=== PATIENT | female | born 1975 | race Two or more races ===

== ENCOUNTER → 2022-08-13 14:02 | Outpatient (BNVA) | payer MEDICAID, SELFPAY | PROVIDERS: Visit Provider Physician Assistant Surgical | DX: Z13.89 Encounter for screening for other disorder (principal) ==

== ENCOUNTER → 2022-08-21 11:26 | Outpatient (BNVA) | payer MEDICAID, SELFPAY | PROVIDERS: Visit Provider Physician Assistant Surgical | DX: E66.9 Obesity, unspecified (principal); Z68.38 Body mass index [BMI] 38.0-38.9, adult; R06.83 Snoring | CPT/HCPCS: 99202 ==

== ENCOUNTER 2022-08-28 11:27 | Outpatient (REF) | payer MEDICAID, SELFPAY ==
--- NOTE | ~2022-08-28 | XR_ITS ---
EXAMINATION: XR CHEST CLINICAL INFORMATION: Obesity. COMPARISON: None TECHNIQUE: 2 views of the chest were obtained. FINDINGS: Normal appearance of the cardiomediastinal silhouette. No focal airspace opacity, pleural effusion or pneumothorax. No acute osseous abnormalities. Mild thoracic spondylosis. The visualized upper abdomen is within normal limits. XR/XR chest 2V IMPRESSION: No acute cardiopulmonary findings.
--- NOTE | 2022-08-28 11:34 | ECG_ITS ---
Test Reason : e66.9 Blood Pressure : / mmHG Vent. Rate : 084 BPM Atrial Rate : 084 BPM P-R Int : 198 ms QRS Dur : 070 ms QT Int : 352 ms P-R-T Axes : 049 031 033 degrees QTc Int : 415 ms Normal sinus rhythm Possible Left atrial enlargement Borderline ECG No previous ECGs available Referred By: Scot Aguilar Electronically Signed By:LUCY NEAL
[2022-08-28 11:44] LABS: MANUAL DIFF FLAG NO
[2022-08-28 12:51] LABS: Basophils Percent Auto 0.2 % (0-2); Eosinophils Absolute Auto 0.2 X10*3/uL (0.0-0.4); Eosinophils Percent Auto 1.9 % (0-4); Hemoglobin 13.9 g/dl (12.0-16.0); Imm Gran Abs Auto 0.04 X10*3/uL (0.00-0.03); Imm Gran Pct Auto 0.5 % (0.0-0.4); Lymphocytes Absolute Auto 1.9 X10*3/uL (1.2-4.9); Lymphocytes Percent Auto 22.3 % (20-40); Mean Corpuscular HGB Conc 33.1 g/dl (31.0-35.0); Mean Corpuscular Hemoglobin 28.4 pg (27.0-33.0); Mean Corpuscular Volume 85.9 fL (80.0-98.0); Mean Platelet Volume 10.5 fL (9.4-12.3); Monocytes Absolute Auto 0.5 X10*3/uL (0.1-1.2); Monocytes Percent Auto 6.1 % (2-11); Neutrophils Absolute Auto 5.7 x10*3/uL (2.0-8.3); Platelet Count 361 X10*3/uL (160-400); Red Blood Count 4.89 X10*6/uL (4.20-5.50); Red Cell Distribution Width 14.3 % (11.0-16.0); White Blood Count 8.3 X10*3/uL (4.8-10.8)
[2022-08-28 14:04] LABS: Alanine Aminotransferase 27 U/L (0-31); Albumin Level 4.5 g/dL (3.5-5.0); Alkaline Phosphatase 120 U/L (39-117); Anion Gap 17 (12-20); Aspartate Amino Transferase 24 U/L (5-31); Bilirubin Total 0.7 mg/dL (0.0-1.0); Blood Urea Nitrogen 17 mg/dL (9-16); Calcium 10.2 mg/dL (8.4-10.2); Carbon Dioxide 29 mmol/L (22-29); Chloride 98 mmol/L (96-108); Cholesterol 200 mg/dL; Estimated Glomerular Filt Rate > 60; Glucose Random 86 mg/dL (60-115); HDL Cholesterol 58 mg/dL; Iron 65 mcg/dL (30-160); LDL Cholesterol Calculated 126 mg/dl; Percent Iron Saturation 21 % (15-50); Potassium 3.5 mmol/L (3.3-5.1); Sodium 140 mmol/L (135-145); Total Iron Binding Capacity 310 mcg/dL (228-428); Total Protein 7.5 g/dL (6.5-8.0); Triglycerides 84 mg/dL; Unsaturated Iron Binding 245 ug/dL
[2022-08-28 14:18] LABS: Estimated Average Glucose 103 mg/dL; Hemoglobin A1C 122.2005 umol/L; Hemoglobin A1c % 5.2 %
[2022-08-28 14:24] LABS: Ferritin 147 ng/mL (10-250); Insulin 10 uU/mL (2-29); TSH reflex Free T4 0.38 uIU/mL (0.32-4.0); Vitamin D 25-OH Total 18.5 ng/mL (>30)
[2022-08-28 15:05] LABS: Vitamin B12 589 pg/mL (200-900)
[2022-08-31 13:23] LABS: Calcium (PTHI) 10.1 mg/dL (8.6-10.2); PTHI 63 pg/mL (16-77)
[2022-09-01 05:53] LABS: Zinc 70 mcg/dL (60-130)
[2022-09-02 14:33] LABS: Vitamin A 37 mcg/dL (38-98)
[2022-09-03 15:58] LABS: Vitamin B1 12 nmol/L (8-30)
== END 2022-08-28 11:28 | disposition home or self-care (01) ==
LOC: HO.XRAY 11:27
PROVIDERS: Visit Provider Physician Assistant Surgical
DX: E66.9 Obesity, unspecified (principal); R06.83 Snoring
CPT/HCPCS: 36415; 71046; 80053; 80061; 82306; 82607; 82728; 82746; 83036; 83525; 83540; 83970; 84425; 84443; 84590; 84630; 85025; 86140; 93005

== ENCOUNTER → 2022-09-11 12:46 | Outpatient (BNVA) | payer MEDICAID, SELFPAY | PROVIDERS: Visit Provider Physician Assistant Surgical | DX: E66.9 Obesity, unspecified (principal); R06.83 Snoring; Z68.37 Body mass index [BMI] 37.0-37.9, adult; Z11.2 Encounter for screening for other bacterial diseases | CPT/HCPCS: 83013; 99211; 99212 ==

== ENCOUNTER 2022-09-11 16:13 | Outpatient (REF) | payer MEDICAID, SELFPAY ==
[2022-09-13 15:02] LABS: H Pylori Breath Test Negative (Negative)
== END 2022-09-11 16:14 | disposition home or self-care (01) ==
LOC: HO.LNP 16:13
PROVIDERS: Visit Provider Physician Assistant Surgical
DX: E66.9 Obesity, unspecified (principal); R06.83 Snoring
CPT/HCPCS: 83013

== ENCOUNTER → 2022-09-24 15:02 | Outpatient (BNVA) | payer MEDICAID, SELFPAY | PROVIDERS: Referring Provider Physician Assistant Surgical; Visit Provider Dietitian, Registered | DX: E66.9 Obesity, unspecified (principal); Z68.36 Body mass index [BMI] 36.0-36.9, adult; Z71.3 Dietary counseling and surveillance | CPT/HCPCS: 97802 ==

== ENCOUNTER → 2022-10-09 12:55 | Outpatient (BNVA) | payer MEDICAID, SELFPAY | PROVIDERS: Visit Provider Physician Assistant Surgical | DX: E66.9 Obesity, unspecified (principal); Z68.36 Body mass index [BMI] 36.0-36.9, adult | CPT/HCPCS: 99212 ==

== ENCOUNTER → 2022-10-14 12:56 | Outpatient (BNVA) | payer MEDICAID, SELFPAY | PROVIDERS: Visit Provider Nurse Practitioner Family | DX: R06.83 Snoring (principal); R40.0 Somnolence; I10 Essential (primary) hypertension; E66.9 Obesity, unspecified; Z68.36 Body mass index [BMI] 36.0-36.9, adult | CPT/HCPCS: 99202 ==

== ENCOUNTER 2022-10-19 07:51 | Outpatient (REF) | payer MEDICAID, SELFPAY ==
--- NOTE | ~2022-10-19 | FL_ITS ---
PROCEDURE: XR FLUOROSCOPY UPPER GI WITH AIR CLINICAL INFORMATION: Obesity. COMPARISON: None available. TECHNIQUE: Routine upper GI air-contrast study was performed. FINDINGS: Following oral administration of thick barium there is normal propagation of bolus from the oral cavity through the pharynx without obstruction. There is smooth indentation of posterior wall of cervical esophagus likely submucosal or extrinsic lesion suspected. Rest of the thoracic esophagus is well opacified and appears unremarkable. On placing patient supine and prone there is a moderate-size hiatal hernia with moderate gastroesophageal reflux. Rest of the stomach, duodenal bulb appears unremarkable. The mucosal pattern is normal. The C-loop is unremarkable. FLUOROSCOPY TIME: 2.3 minutes DOSE AREA PRODUCT: 42.094 uGy-m2 (microgray-meter squared) FL/FL upper GI w air IMPRESSION: Small sliding hiatal hernia with moderate gastroesophageal reflux. Smooth indentation of posterior cervical esophageal wall on some of the images. Question submucosal or extrinsic lesion.
--- NOTE | ~2022-10-19 | US_ITS ---
EXAMINATION: US COMPLETE ABDOMEN WITH LIVER ELASTOGRAPHY CLINICAL INFORMATION: Obesity.. COMPARISON: None available. TECHNIQUE: Real-time imaging of the abdominal viscera. Noninvasive ultrasound liver fibrosis assessment is performed using Karly ElastPQ point quantification shear wave elastography (2D-SWE) with a C5-2 MHz transducer. Multiple elastography samples are obtained. FINDINGS: PANCREAS: The visualized pancreatic head and body are normal in appearance. The remainder of the pancreas is obscured from visualization by the overlying bowel gas. ABDOMINAL AORTA: The proximal, middle, and distal aortic segments are normal in caliber. INFERIOR VENA CAVA: Visualized portions are normal. LIVER: The liver demonstrates normal size and contour. There is heterogeneous increased echogenicity with areas of fatty infiltration, largest measuring 5.3 x 3.1 x 3.4 cm. No focal lesion or intrahepatic biliary duct dilatation. The right lobe measures 19.3 cm in length. The left lobe measures 14.3 cm in length. Portal flow is hepatopedal. Shear wave liver elastography median stiffness is 2.15 m/s. (Reference: Normal median stiffness is 1.3 m/s or less.) IQR/median stiffness to assess sampling precision is 0.04. (Reference: Good quality data set is IQR/median stiffness of 0.15 or less.) GALLBLADDER: Gallbladder wall thickness is 0.13 cm. The gallbladder is physiologically distended without evidence of stones, sludge, polyps, wall thickening or pericholecystic fluid. COMMON BILE DUCT: Normal in caliber measuring 0.16 cm in diameter. RIGHT KIDNEY: No hydronephrosis. No renal calculi or focal parenchymal lesions. The kidney measures 11.2 cm in maximum dimension. There is an echogenic stone lower pole measuring 0.4 x 0.7 x 0.3 cm. LEFT KIDNEY: Normal. No hydronephrosis. No renal calculi or focal parenchymal lesions. The kidney measures 12.3 cm in maximum dimension. SPLEEN: Normal. The spleen measures 11.7 cm in maximum dimension. FREE FLUID: None. US/US abdomen comp w elastography IMPRESSION: 1. Heterogeneous with areas of fatty infiltration of liver. No intrahepatic ductal dilatations. 2. Nonobstructive echogenic calculi lower pole right kidney. 3. Liver elastography: Median liver stiffness measures 2.15 m/s corresponding to (suggestive of CSPH). REFERENCE: Society of Radiologists in Ultrasound Liver Stiffness Thresholds (2020): LIVER STIFFNESS THRESHOLDS: *Liver Stiffness equal or less than 1.3 m/s: High probability of being normal. *Liver Stiffness less than 1.7 m/s: In the absence of other known clinical signs, rules out compensated advanced chronic liver disease. *Liver Stiffness 1.7-2.1 m/s: Suggestive of compensated advanced chronic liver disease but need further test for confirmation. *Liver Stiffness over 2.1 m/s: Rules in compensated advanced chronic liver disease. *Liver Stiffness over 2.4 m/s: Suggestive of clinically significant portal hypertension. QUALITY OF DATA SET: *IQR/Median value equal or less than 0.15 implies a quality data set. *IQR/Median value over 0.15 implies a poor quality data set. SIGNIFICANT CHANGE FROM PRIOR EXAM: Significant change if liver stiffness measurement is 10% or greater from prior exam. OTHER CONSIDERATIONS: The stage of liver fibrosis may be overestimated in the setting of acute hepatitis, liver inflammation, elevated liver function tests, hepatic vascular congestion, obstructive cholestasis, non-fasting state, and infiltrative diseases such as amyloidosis and lymphoma. In some patients with NAFLD, the liver stiffness thresholds for compensated advanced chronic liver disease may be lower. In causes other than viral hepatitis and NAFLD, liver stiffness thresholds are not well established.
== END 2022-10-19 07:52 | disposition home or self-care (01) ==
LOC: HO.US 07:51
PROVIDERS: Visit Provider Physician Assistant Surgical
DX: Z01.818 Encounter for other preprocedural examination (principal); E66.9 Obesity, unspecified; K21.9 Gastro-esophageal reflux disease without esophagitis; R06.83 Snoring
CPT/HCPCS: 74246; 76705; 76981

== ENCOUNTER → 2022-10-30 12:51 | Outpatient (BNVA) | payer MEDICAID, SELFPAY | PROVIDERS: Visit Provider Surgery | DX: E66.9 Obesity, unspecified (principal); K44.9 Diaphragmatic hernia without obstruction or gangrene; K76.0 Fatty (change of) liver, not elsewhere classified; R40.0 Somnolence; R06.83 Snoring; I10 Essential (primary) hypertension | CPT/HCPCS: 99212 ==

== ENCOUNTER → 2022-11-20 12:50 | Outpatient (BNVA) | payer MEDICAID, SELFPAY | PROVIDERS: Visit Provider Physician Assistant Surgical | DX: E66.9 Obesity, unspecified (principal); Z68.34 Body mass index [BMI] 34.0-34.9, adult | CPT/HCPCS: 99212 ==

== ENCOUNTER → 2022-12-14 12:56 | Outpatient (BNVA) | payer MEDICAID, SELFPAY | PROVIDERS: Visit Provider Nurse Practitioner Family | DX: R40.0 Somnolence (principal); R06.83 Snoring; E66.9 Obesity, unspecified; Z68.34 Body mass index [BMI] 34.0-34.9, adult | CPT/HCPCS: 99212 ==

== ENCOUNTER → 2022-12-22 14:06 | Outpatient (BNVA) | payer MEDICAID, SELFPAY | PROVIDERS: Visit Provider Surgery | DX: E66.9 Obesity, unspecified (principal); K76.0 Fatty (change of) liver, not elsewhere classified; K44.9 Diaphragmatic hernia without obstruction or gangrene; I10 Essential (primary) hypertension; R40.0 Somnolence; Z68.33 Body mass index [BMI] 33.0-33.9, adult | CPT/HCPCS: 99212 ==

== ENCOUNTER → 2023-01-04 15:17 | Outpatient (BNVA) | payer MEDICAID, SELFPAY | PROVIDERS: Visit Provider Physician Assistant Surgical ==

== ENCOUNTER → 2023-01-05 10:02 | Outpatient (REF) | payer MEDICAID, SELFPAY | LOC: HO.SL 10:02 | PROVIDERS: Visit Provider Nurse Practitioner Family | DX: G47.33 Obstructive sleep apnea (adult) (pediatric) (principal); E66.9 Obesity, unspecified; R06.83 Snoring; R40.0 Somnolence | CPT/HCPCS: 95806 ==

== ENCOUNTER 2023-01-26 09:26 | Outpatient (REF) | payer MEDICAID, SELFPAY ==
--- NOTE | ~2023-01-26 | US_ITS ---
EXAMINATION: US COMPLETE ABDOMEN WITH LIVER ELASTOGRAPHY CLINICAL INFORMATION: Fatty liver. COMPARISON: Abdominal ultrasound dated 10/21/2022. TECHNIQUE: Real-time imaging of the abdominal viscera. Noninvasive ultrasound liver fibrosis assessment is performed using Karly ElastPQ point quantification shear wave elastography (2D-SWE) with a C5-2 MHz transducer. Multiple elastography samples are obtained. FINDINGS: PANCREAS: Normal. The visualized pancreatic head and body are normal in appearance. The remainder of the pancreas is obscured from visualization by the overlying bowel gas. ABDOMINAL AORTA: The proximal, middle, and distal aortic segments are normal in caliber. INFERIOR VENA CAVA: Visualized portions are normal. LIVER: The liver demonstrates normal contour and heterogeneously increased echogenicity. No biliary duct dilatation. In the periportal region, a 5.7 x 3.7 x 3.8 cm hyperechoic, circumscribed density is seen. This appearance is similar to 10/19/2022. The right lobe measures 17.3 cm in length. The left lobe measures 10.9 cm in length. Portal flow is towards the liver (hepatopetal). Shear wave liver elastography median stiffness is 1.52 m/s (reference: normal median stiffness is 1.3 m/s or less). IQR/median stiffness to assess sampling precision is 0.06 (reference: good quality data set is IQR/median stiffness of 0.15 or less). GALLBLADDER: Normal. The gallbladder is physiologically distended without evidence of stones, sludge, polyps, wall thickening or pericholecystic fluid. COMMON BILE DUCT: Normal in caliber measuring 0.3 cm in diameter. RIGHT KIDNEY: Normal. No hydronephrosis. No renal calculi or focal parenchymal lesions. The kidney measures 10.2 cm in maximum dimension. LEFT KIDNEY: Normal. No hydronephrosis. No renal calculi or focal parenchymal lesions. The kidney measures 10.8 cm in maximum dimension. SPLEEN: Normal. The spleen measures 11.6 cm in maximum dimension. FREE FLUID: None. US/US abdomen comp w elastography IMPRESSION: 1. There is generalized increase in hepatic echotexture, consistent with fatty infiltration or hepatocellular disease. Please correlate clinically. No biliary dilatation is seen. 2. A 5.7 cm in maximal diameter hyperechoic density is seen within the periportal region, with ultrasound features suggesting a possible benign hemangioma. A focus of fat deposition is a further, less likely possibility. In either event, this is of doubtful clinical significance. If of continued clinical concern (i.e., history of hepatocellular disease or known malignancy), this could be further evaluated with dynamic CT or MRI (hemangioma protocol). 3. There is borderline hepatomegaly. 4. Liver elastography: In the absence of other known clinical signs, measurements rule out compensated advanced chronic liver disease. If there are known clinical signs, further testing may be needed for confirmation. REFERENCE: Society of Radiologists in Ultrasound Liver Stiffness Thresholds (2020): LIVER STIFFNESS THRESHOLDS: *Liver Stiffness equal or less than 1.3 m/s: High probability of being normal. *Liver Stiffness less than 1.7 m/s: In the absence of other known clinical signs, rules out compensated advanced chronic liver disease. *Liver Stiffness 1.7-2.1 m/s: Suggestive of compensated advanced chronic liver disease but need further test for confirmation. *Liver Stiffness over 2.1 m/s: Rules in compensated advanced chronic liver disease. *Liver Stiffness over 2.4 m/s: Suggestive of clinically significant portal hypertension. QUALITY OF DATA SET: *IQR/Median value equal or less than 0.15 implies a quality data set. *IQR/Median value over 0.15 implies a poor quality data set. SIGNIFICANT CHANGE FROM PRIOR EXAM: Significant change if liver stiffness measurement is 10% or greater from prior exam. OTHER CONSIDERATIONS: The stage of liver fibrosis may be overestimated in the setting of acute hepatitis, liver inflammation, elevated liver function tests, hepatic vascular congestion, obstructive cholestasis, non-fasting state, and infiltrative diseases such as amyloidosis and lymphoma. In some patients with NAFLD, the liver stiffness thresholds for compensated advanced chronic liver disease may be lower. In causes other than viral hepatitis and NAFLD, liver stiffness thresholds are not well established.
== END 2023-01-26 09:27 | disposition home or self-care (01) ==
LOC: HO.US 09:26
PROVIDERS: Visit Provider Surgery
DX: K76.0 Fatty (change of) liver, not elsewhere classified (principal); E66.9 Obesity, unspecified
CPT/HCPCS: 76705; 76981

== ENCOUNTER → 2023-01-29 14:29 | Outpatient (BNVA) | payer MEDICAID, SELFPAY | PROVIDERS: Visit Provider Surgery | DX: E66.9 Obesity, unspecified (principal); I10 Essential (primary) hypertension; K44.9 Diaphragmatic hernia without obstruction or gangrene; K76.0 Fatty (change of) liver, not elsewhere classified; K21.9 Gastro-esophageal reflux disease without esophagitis; G47.33 Obstructive sleep apnea (adult) (pediatric); Z68.31 Body mass index [BMI] 31.0-31.9, adult | CPT/HCPCS: 99212 ==

== ENCOUNTER 2023-02-22 12:09 | Outpatient (AMB) | payer MEDICAID, SELFPAY ==
--- NOTE | 2023-02-22 11:59 | MHC.OFFVISWM ---
Intake VS Expanded 02/22/23 12:04 Height 5 ft 7 in Weight 198 lb BMI 31.0 Intake Visit Reasons: VIDEO Pre Op LSG 03/10/23 Farm Equipment Engineer Required: Yes Farm Equipment Engineer Name: office cmi Allergies No Known Allergies Allergy (Verified 01/29/23 15:10) Medication List - Last Reconciled 02/22/23 by MARIPOSA Hoover bupropion HCl 150 mg PO BID chlorthalidone 25 mg PO DAILY cholecalciferol (vitamin D3) 125 mcg PO DAILY sennosides (senna) 17.2 mg (2 x 8.6 mg) PO BEDTIME PRN vitamin A palmitate 10,000 units PO DAILY HPI HPI Comments History of Present Illness Details This is a pre op appointment for scheduled LSG with Dr Hanks on 03/10/23 meal plan: 3 Pure Protein shakes ([employer], [employer], [facility]), (1/2 scoop in 8-10 oz low fat unsweetened almond milk) at 630am-830am, Second shake (1/2 scoop in 8-10 oz unsweetened almond milk) at 1030am-1230pm 1 protein bar (Zone Perfect bar at [employer], [facility], or [employer]) at 230pm-430pm. Dinner at 530pm (7 forks of protein and 7 forks of salad/vegetables). Another shake with 1/2 scoop in 8-10 oz unsweetened almond milk at 630pm-830pm. Drinking 96 oz of water exercise plan: walking 40 minutes on treadmill 5 days per week, 400 calories. weight loss: 50.2 pounds or 20.2 % [facility] awakens at: 430 am, bed at: 9 pm [facility] Surgical History Hx of plastic surgery Post-tubal ligation syndrome Family History Mother No problems noted. Father No problems noted. Daughter No problems noted. Son No problems noted. Son No problems noted. Son No problems noted. Social History Alcohol intake: current Alcohol intake frequency: holidays/special occasions only Patient Tobacco Use Status: Never used Tobacco Assessment & Plan Assessment & Plan (1) Obesity (BMI 30-39.9): Code(s): E66.9 - Obesity, unspecified Plan: 1. Start this meal plan on 02/24/23, approximately 2 weeks prior to surgery. Pure Protein shakes first shake 1 scoop, all other shakes 1/2 scoop 530-730 am 9-11 am 1-3 pm 4-6 pm 7-9 pm 2. Drink at least 64 oz fluids daily. NO SODA OR JUICE. NO CAFFEINE 3. Continue to take your vitamins as you have been doing 4. No ALCOHOLIC beverages 5. No Advil, Motirn, Aleve or NSAIDS 6. Midnight on the night before surgery, nothing by mouth to eat or drink except as specifically advised by your surgeon for medications in the morning with a small sip of water. 7. Text me if you have any questions or concerns. [phone] Telehealth Telehealth Location of provider rendering services: practice address Location of patient: address on file Patient Identification confirmed using: Name, : Yes Telehealth method: voice only Patient verbally consented to treatment: Yes Patient verbally consented to billing insurance company: Yes Patient informed of any privacy concerns related to visit: Yes Minutes spent on Phone/Video with Pt.: 10 Coding Level of Care Code Tele Est Pt Level 3 (06804) Diagnoses Obesity (BMI 30-39.9) E66.9 Time Spent (min) 20
[2023-02-22 12:04] VITALS: BMI 31.0
== END 2023-02-22 12:34 | disposition home or self-care (01) ==
LOC: HO.HBS 12:09
PROVIDERS: Visit Provider Physician Assistant Surgical
DX: E66.9 Obesity, unspecified (principal)
CPT/HCPCS: 99213

== ENCOUNTER → 2023-02-22 12:09 | Outpatient (BNVA) | payer MEDICAID, SELFPAY | PROVIDERS: Visit Provider Physician Assistant Surgical | DX: E66.9 Obesity, unspecified (principal); Z68.31 Body mass index [BMI] 31.0-31.9, adult | CPT/HCPCS: 99213 ==

== ENCOUNTER → 2023-07-05 11:29 | Outpatient (BNVA) | payer MEDICAID, SELFPAY | PROVIDERS: Visit Provider Physician Assistant Surgical | DX: E66.9 Obesity, unspecified (principal); Z68.30 Body mass index [BMI] 30.0-30.9, adult | CPT/HCPCS: 99212 ==

== ENCOUNTER 2023-07-05 14:28 | Outpatient (AMB) | payer MEDICAID, SELFPAY ==
--- NOTE | 2023-07-05 14:32 | MHC.OFFVISWM ---
Intake VS Expanded 07/05/23 14:48 BP 136/80 Blood Pressure Location Rt brachial Blood Pressure Position Sitting Pulse 87 Pulse Source Pulse Oximeter Temp 97.7 F Temperature Source Temporal Artery Scan Pulse Oximetry 97 Oxygen Delivery Method Room Air Height 5 ft 7 in Weight 191 lb 6.4 oz BMI 30.0 Body Fat % 39.5 Body Fat Mass 75.6 Fat Free Mass 115.8 Visceral Fat Rating 8.0 Body Water % 43.1 Body Water Mass 82.4 Muscle Mass/Score 109.8 Basal Metabolic Rate/Score 1,594 Intake Visit Reasons: (OV) Re-Est SWL Allergies No Known Allergies Allergy (Verified 07/05/23 14:41) HPI HPI Comments History of Present Illness Details Is a pleasant 48-year-old female who returns to the office. She was previously in our program from August through January 2023 losing 50 lb. She was prepared for surgery, however a family emergency occurred and she needed to focus her efforts on taking care of her family. She returns to the office today for continued care. She was last seen in the office on 02/22/2023 with a weight of 198 lb. Weight today is 191.4 lb with a BMI of 30. Since presentation to the surgical weight loss program in August 2022, she has lost a total of 56.8 lb, reflective 22.8% total body weight loss. She states that she is planning on going away on vacation in early August. She would like to reestablish with the program, resume a structured meal plan and exercise plan, and then discuss surgery upon her return from vacation in mid August. wake 4 am, bed at 9 pm, dinner 5 pm Meal plan: 3 small meals per day Exercise plan: PF, treadmill, 5 days per week, 250 mahesh-380 mahesh PFSH Medical History Fatty liver HTN (hypertension) Hiatal hernia Sleep apnea Surgical History Hx of tubal ligation Hx of plastic surgery Family History Mother No problems noted. Father No problems noted. Daughter No problems noted. Son No problems noted. Son No problems noted. Son No problems noted. Social History Are you a primary career services coordinator to a significant other at home: No Do you presently have visiting nurse or other home services: No Alcohol intake: current Alcohol intake frequency: holidays/special occasions only Patient Tobacco Use Status: Never used Tobacco Physical Exam Const General: healthy appearing and no acute distress Resp Effort & Inspection: normal respiratory effort Auscultation: clear to auscultation bilaterally Cardio Rate: regular rate Rhythm: regular rhythm GI Auscultation: normal bowel sounds Extrem General: Yes normal to inspection Assessment & Plan Assessment & Plan (1) Obesity (BMI 30-39.9): Code(s): E66.9 - Obesity, unspecified Plan: Patient wishes to resume the structured meal plan and exercise plan. She has scheduled a vacation in early August and would like to potentially be scheduled for surgery upon return. Will have her return to the office after her vacation and consideration for referral to Dr. Lundberg after that meeting. meal plan: 3 Pure Protein shakes ([employer], [employer], [employer]), (1/2 scoop in 8-10 oz low fat unsweetened almond milk) at 630am-830am, Second shake (1/2 scoop in 8-10 oz unsweetened almond milk) at 1030am-1230pm 1 protein bar (Zone Perfect bar at [employer], [facility], or [employer]) at 230pm-430pm. Dinner at 530pm (7 forks of protein and 7 forks of salad/vegetables). Another shake with 1/2 scoop in 8-10 oz unsweetened almond milk at 630pm-830pm. Exercise plan to include continued treadmill with a goal of 400 calories burned 5 days a week. Return to the office upon her return from vacation in mid August. Coding Level of Care Code Est Pt Level 3 (93043) Diagnoses Obesity (BMI 30-39.9) E66.9
[2023-07-05 14:48] VITALS: BP 136/80; PULSE 87; TEMP 36.5; O2SAT 97
== END 2023-07-05 15:13 | disposition home or self-care (01) ==
PROVIDERS: Visit Provider Physician Assistant Surgical
DX: E66.9 Obesity, unspecified (principal)
CPT/HCPCS: 99213

== ENCOUNTER 2023-09-13 14:31 | Outpatient (AMB) | payer OTHER, SELFPAY ==
--- NOTE | 2023-09-13 14:35 | A.OFFVIS_ITS ---
Intake VS Expanded 09/13/23 14:43 BP 131/80 Blood Pressure Location Rt brachial Blood Pressure Position Sitting Pulse 74 Pulse Source Pulse Oximeter Temp 96.9 F Temperature Source Tympanic Pulse Oximetry 98 Oxygen Delivery Method Room Air Height 5 ft 7 in Weight 189 lb 9.6 oz BMI 29.7 Body Fat % 42.8 Body Fat Mass 81.2 Fat Free Mass 108.4 Visceral Fat Rating 9.0 Body Water % 40.8 Body Water Mass 77.4 Muscle Mass/Score 103.0 Basal Metabolic Rate/Score 1,515 Intake Visit Reasons: (OV) F/U SWL Splitting Machine Operator Required: Yes Splitting Machine Operator Name: office cmi Allergies No Known Allergies Allergy (Verified 09/13/23 14:45) Medication List - Last Reconciled 09/13/23 by MARIPOSA Hoover acetaminophen 500 mg (15 mL) PO Q6H PRN bupropion HCl 150 mg PO BID chlorthalidone 25 mg PO DAILY cholecalciferol (vitamin D3) 125 mcg PO DAILY ondansetron HCl 4 mg PO Q6H PRN pantoprazole 40 mg PO QAM 30 days polyethylene glycol 3350 (Miralax) Take 7 packets 2 days before surgery and 7 packets 1 day before surgery. Mix each packet with 8 oz's of water before surgery. sennosides (senna) 17.2 mg (2 x 8.6 mg) PO BEDTIME PRN sucralfate 10 mL PO BID 30 days vitamin A palmitate 10,000 units PO DAILY HPI HPI Comments History of Present Illness Details Is a pleasant 48-year-old female who returns to the office. She was previously in our program from August through January 2023 losing 50 lb. She was prepared for surgery, however a family emergency occurred and she needed to focus her efforts on taking care of her family. She was last seen in the office on 07/05/2023 with a weight of 191.4 lb with a BMI of 30. Weight today is 189.6 lb with a BMI of 29.7. Since presentation to the surgical weight loss program in August 2022, she has lost a total of 58.6 lb, reflective 23.6% total body weight loss. Pre op work up completed as follows: SWL classes:? 03/09 BH appts: cleared-10/28/22 ? ? RD appts: cleared-2/23/23 Labs: 08/28/22-low A, D H. pylori: [] CXR: [] EKG: [] ABD U/S: [] UGI: [] Meal plan: 3 Pure Protein shakes ([employer], [employer], [facility]), (1/2 scoop in 8-10 oz low fat unsweetened almond milk) at 630am-830am, Second shake (1/2 scoop in 8-10 oz unsweetened almond milk) at 1030am-1230pm 1 protein bar (Zone Perfect bar at [employer], [facility], or [employer]) at 230pm-430pm. Dinner at 530pm (7 forks of protein and 7 forks of salad/vegetables). Another shake with 1/2 scoop in 8-10 oz unsweetened almond milk at 630pm-830pm. Drinkin oz water Exercise plan: PF, treadmill, 5 days per week, 300 mahesh PFSH Medical History Fatty liver HTN (hypertension) Hiatal hernia Sleep apnea Surgical History Hx of tubal ligation Hx of plastic surgery Family History Mother No problems noted. Father No problems noted. Daughter No problems noted. Son No problems noted. Son No problems noted. Son No problems noted. Social History Are you a primary home care aide to a significant other at home: No Do you presently have visiting nurse or other home services: No Alcohol intake: current Alcohol intake frequency: holidays/special occasions only Patient Tobacco Use Status: Never used Tobacco Review of Systems Const All systems reviewed & are unremarkable except as noted in HPI and below Physical Exam Const General: healthy appearing and no acute distress Resp Effort & Inspection: normal respiratory effort Auscultation: clear to auscultation bilaterally Cardio Rate: regular rate Rhythm: regular rhythm GI Auscultation: normal bowel sounds Extrem General: Yes normal to inspection Assessment & Plan Assessment & Plan (1) Overweight (BMI 25.0-29.9): Code(s): E66.3 - Overweight Plan: Patient has made excellent progress. Due to a series of circumstances regarding having to care for her family, her surgery needed to be delayed. This has now been resolved and we will refer her to Dr. Lundberg for continued preoperative care. Coding Level of Care Code Est Pt Level 3 (65376) Diagnoses Overweight (BMI 25.0-29.9) E66.3
[2023-09-13 14:43] VITALS: BP 131/80; PULSE 74; TEMP 36.1; O2SAT 98; BMI 29.7
== END 2023-09-13 15:01 | disposition home or self-care (01) ==
PROVIDERS: Visit Provider Physician Assistant Surgical
DX: E66.3 Overweight (principal)
CPT/HCPCS: 99213

== ENCOUNTER → 2023-09-13 14:31 | Outpatient (BNVA) | payer OTHER, SELFPAY | PROVIDERS: Visit Provider Physician Assistant Surgical | DX: E66.3 Overweight (principal); Z68.29 Body mass index [BMI] 29.0-29.9, adult | CPT/HCPCS: 99212 ==

== ENCOUNTER 2023-10-04 08:36 | Outpatient (AMB) | payer OTHER, SELFPAY ==
--- NOTE | 2023-10-03 18:59 | MHC.OFFVISWM ---
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 Mix each packet with 8 oz's of water before surgery. 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 ?I spent 20 minutes speaking with the patient on the phone plus an additional 5 minutes reviewing and updating records for a total of 40 minutes HPI Comments History of Present Illness Details Overall weight loss: 54.7lbs, or 21.05% TBWL Is doing 3 Pure protein shakes (1/2 scoop each in 8oz almond milk), one Zone Perfect protein bar and one meal (7 forks of meat and 7 forks of salad or vegetables) Exercise: treadmill for 300 calories, 5 days per week PFSH Medical History Fatty liver HTN (hypertension) Hiatal hernia Sleep apnea Surgical History Hx of tubal ligation Hx of plastic surgery Family History Mother No problems noted. Father No problems noted. Daughter No problems noted. Son No problems noted. Son No problems noted. Son No problems noted. Social History Are you a primary care navigator to a significant other at home: No Do you presently have visiting nurse or other home services: No Alcohol intake: current Alcohol intake frequency: holidays/special occasions only Patient Tobacco Use Status: Never used Tobacco Physical Exam Vital Signs: BMI result Body Mass Index 30.3 Assessment & Plan Assessment & Plan (1) Obesity (BMI 30-39.9): Code(s): E66.9 - Obesity, unspecified Plan: 1. Plan for lap sleeve gastrectomy including upper GI endoscopy. All tests has been completed and reviewed and the patient is cleared for the surgery. ?If diaphragmatic or ventral hernias are present at time of surgery, these will be repaired laparoscopically as well. Risks and complications were discussed in detail including possible conversion to an open procedure, anastomotic leak, bleeding requiring transfusion, small bowel obstruction, , DVT and pulmonary embolism, cardiac, or pulmonary complications, as correction complications such as anastomotic ulcer, insufficient weight loss and vitamin deficiencies. I emphasized the importance of close follow-up, adherence to instructions and good communication. So far she has proven to be an excellent communicator and very compliant with all our directions accomplishing a great weight loss. I believe that she is an excellent candidate and she is ready. 2. Continue same nutritional plan of 3 Pure protein shakes (1/2 scoop each in 8oz almond milk), one Zone Perfect protein bar and one meal (7 forks of meat and 7 forks of salad or vegetables) 3. Exercise: increase treadmill to either 300 calories, 7 days per week, or 400 calories 5 days per week 4. Continue to send me weight measurements weekly on Mondays Telehealth Telehealth Location of provider rendering services: practice address Location of patient: address on file Patient Identification confirmed using: Name, : Yes Telehealth method: voice only Patient verbally consented to treatment: Yes Patient verbally consented to billing insurance company: Yes Patient informed of any privacy concerns related to visit: Yes Minutes spent on Phone/Video with Pt.: 40 Coding Level of Care Code Tele Est Pt Level 4 (22286) Diagnoses Obesity (BMI 30-39.9) E66.9 Time Spent (min) 40 Comment With a [place]orese speaking section cutter
[2023-10-03 19:15] VITALS: BMI 29.7
[2023-10-04 07:43] VITALS: BMI 30.3
== END 2023-10-04 11:32 | disposition home or self-care (01) ==
LOC: HO.HBS 08:36
PROVIDERS: Visit Provider Surgery
DX: E66.9 Obesity, unspecified (principal); Z68.30 Body mass index [BMI] 30.0-30.9, adult
CPT/HCPCS: 99214

== ENCOUNTER → 2023-10-04 08:36 | Outpatient (BNVA) | payer OTHER, SELFPAY | PROVIDERS: Visit Provider Surgery ==

== ENCOUNTER → 2024-04-17 10:18 | Outpatient (BNVA) | payer SELFPAY | PROVIDERS: Visit Provider Physician Assistant Surgical ==

== ENCOUNTER → 2024-05-08 10:15 | Outpatient (AMB) | payer OTHER, SELFPAY ==
--- NOTE | 2024-05-08 10:05 | A.OFFWM_ITS ---
Intake Intake Visit Reasons: (TV) BH Intake Allergies No Known Allergies Allergy (Verified 04/17/24 10:35) PFSH Medical History Fatty liver HTN (hypertension) Hiatal hernia Sleep apnea Surgical History Hx of tubal ligation Hx of plastic surgery Family History Mother No problems noted. Father No problems noted. Daughter No problems noted. Son No problems noted. Son No problems noted. Son No problems noted. Social History Are you a primary career services coordinator to a significant other at home: No Do you presently have visiting nurse or other home services: No Alcohol intake: current Alcohol intake frequency: holidays/special occasions only Patient Tobacco Use Status: Never used Tobacco Behavioral Health Assessment Weight Management Therapy Therapy Notes Details PT is a years old F/M, who presents for a visit to complete BH assessment as part of surgical weight loss program. PT started the program in August 2022, however her son had an accident in march/2023 1 weeks before her surgery which lead client to stop her plans to help him with his recovery. She returned to the program in July/2023, and is now dedicated again to her weight-loss journey. In july/2023 she was 191Lbs, and lost 24Lbs total since started program. Today she is 205Lbs. Pt denies any history of mental health services, being in crisis or inpatient, and also reported no history or concerns with self-harm, other-harm, substance use or addictive behavior. Presenting Concerns Referral Source [facility] Provider Reason for referral Completion of behavioral health assessment as part of process for weight-loss surgery. Precipitating Event Obesity. Living Situation Current Living Situation Rent At risk of losing current housing? No Satisfied with current living situation? Yes Comments PT lives with her 4 adult children. (29, 28, the 22 y/o twins) Food/Weight/Diet Expectations of change Pt wants to lose weight, being able to maintain the loss and become a healthier person. She wants to feel better with her body and be more physically active for a better quality of life. Meal plan: 2 shakes, 2 bars 1 meal. Exercise: 5 days at week, trying to burn 400 calories. History/Relationship with food PT reports she struggles with sweets. Social History Family history and relationship PT never , but has a boyfriend and they have been together for about 5 years. She has 4 adult children, has 2 brothers, parents alive. PT reports good relationships. 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 Developmental history and status None reported. Currently WNL. Social support Boyfriend and children. Community support None. Sabianist/Spirituality Baptism. Cultural/Ethnic information PT was born in [place]. Lives in [place] 30 years ago. Pt is [place]ian-speaking only. Legal Involvement and History Current or historical involvement with the legal system? None reported. Education Highest grade completed 11th grade. Preferred learning style Visual Currently enrolled in educational program? No Interested in further educational program? No Educational Interests/Skills Driving. 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 ) Wants help to find employment? No Meaningful activities Mindful walks. Listen to music, family activities, be with her dog. Financial Situation Describe current financial situation Comfortable Financial assistance? Food [employer] Service Service? No Mental Health and Addiction Treatment Current/Past substance abuse? No Comments Alcohol: 2 times at month, 1-2 glasses of wine. Cigarettes/Tobacco: None Cannabis/Edibles: None. Current/Past addictive behavior concerns? No Psychiatric history PT denies ever been in crisis or inpatient for mental health. There is no history and/or current concern about SI/Sa and self-harm or other harm. Medical and Physical Health Summary Additional Medical History not covered in history None. Sexual History concerns None Physical exam in the last year? No Pain Screening Current pain? No Pain in the last few months? Yes (Joint pain.) Medications Is the patient compliant with medications? Not applicable Does the patient have Sanchez Guardian in place? Not applicable Does the patient use complimentary health approaches? No Trauma/Abuse History History of trauma? No Questionnaires PHQ-9 Over the last 2 weeks, how often have you been bothered by any of the following problems? 1. Little interest or pleasure in doing things: several days 2. Feeling down, depressed, or hopeless: several days 3. Trouble falling or staying asleep, or sleeping too much: several days 4. Feeling tired or having little energy: more than half the days 5. Poor appetite or overeating: several days 6. Feeling bad about yourself - or that you are a failure or have let yourself or your family down: several days 7. Trouble concentrating on things, such as reading the newspaper or watching television: more than half the days 8. Moving or speaking so slowly that other people could have noticed. Or the opposite - being so fidgety or restless that you have been moving around a lot more than usual: several days 9. Thoughts that you would be better off or of hurting yourself in some way: not at all Total score: 10 Depression Screening Interpretation: Positive (Scores from new PT pack obtained on 04/27. ) Depression Screening Done: Yes Source: Developed by Drs. Jorge Swanson, Yen Alexis, Elroy Murcia and colleagues, with an educational jevon from [employer]. Binge Eating Scale Group 1 A. I don't feel self-conscious about my wt. or body size when I'm with others. B. I feel concerned about how I look to others, but it normally does not make me fell disappointed with myself C. I do get self-conscious about my appearance and wt. which makes me feel disappointed in myself. D. I feel very self-conscious about my wt. and frequently I feel intense shame and disgust for myself. I try to avoid social contacts because of my self- consciousness. Response Group 1: B Group 2 A. I don't have any difficulty eating slowly in the proper manner. B. Although I seem to gobble down foods, I don't end up feeling stuffed because of eating to much. C. At times, I tend to eat quickly and then, I feel uncomfortably full afterwards. D. I have the habit of bolting down my food, without really chewing it. When this happens I usually feel uncomfortably stuffed because I've eaten to much. Response Group 2: D Group 3 A. I feel capable to control my eating urges when I want to. B. I feel like I have failed to control my eating more than the average person. C. I feel utterly helpless when it comes to feeling in control of my eating urges. D. Because I feel so helpless about controlling my eating I have become very desperate about trying to get control. Response Group 3: D Group 4 A. I don't have the habit of eating when I'm bored. B. I sometimes eat when I'm bored, but often I'm able to get busy and get my mind off food. C. I have a regular habit of eating when I'm bored, but occasionally, I can use some other activity to get my mind off eating. D. I have a strong habit of eating when I'm bored. Nothing seems to help me breath the habit. Response Group 4: D Group 5 A. I'm usually physically hungry when I eat something. B. Occasionally, I eat something on impulse even though I really am not hungry. C. I have the regular habit of eating foods, that I might not really enjoy, to satisfy a hungry feeling even though physically, I don't need the food. D. Although I'm not physically hungry, I get a hungry feeling in my mouth that only seems to be satisfied when I eat a food, like sandwich, that fills my mouth. Sometimes, when I eat the food to satisfy my mouth hunger, I then spit the food out so I won't gain weight. Response Group 5: B Group 6 A. I don't feel any guilt or self-hate after I overeat. B. After I overeat, occasionally I feel guilt or self-hate. C. Almost all the time I experience strong guilt or self-hate after I overeat. Response Group 6: C Group 7 A. I don't lose total control of my eating when dieting even after periods when I overeat. B. Sometimes when I eat a forbidden food on a diet, I feel like I blew it and eat even more. C. Frequently, I have the habit of saying to myself, I've blown it now, why not go all the way, when I overeat on a diet. When that happens I eat more. D. I have a regular habit of starting a strict diets for myself but I break the diets by going on an eating binge. My life seems to be either a feast or famine. Response Group 7: C Group 8 A. I rarely eat so much food that I feel uncomfortably stuffed afterwards. B. Usually about once a month, I each such a quantity of food, I end up feeling very stuffed. C. I have regular periods during the month when I eat large amounts of food, either at mealtime or at snacks. D. I eat so much food that I regularly feel quite uncomfortable after eating and sometimes a bit nauseous. Response Group 8: C Group 9 A. My level of calorie intake does not go up very high or go down very low on a regular basis. B. Sometimes after I overeat, I will try to reduce my caloric intake to almost nothing to compensate for the excess calories I've eaten. C. I have a regular habit of overeating during the night. It seems that my routine is not to be hungry in the morning but overeat in the evening. D. In my adult years, I have had week-long periods where I practically starve myself. This follows periods when I overeat. It seems I live a life of either feast or famine. Response Group 9: A Group 10 A. I usually am able to stop eating when I want to. I know when enough is enough. B. Every so often, I experience a compulsion to eat which I can't seem to control. C. Frequently, I experience strong urges to eat which I seem unable to control, but at other times I can control my eating urges. D. I feel incapable of controlling urges to eat. I have a fear of not being able to stop eating voluntarily. Response Group 10: C Group 11 A. I don't have any problem stopping eating when I feel full. B. I usually can stop eating when I feel full but occasionally overeat leaving me feeling uncomfortably stuffed. C. I have a problem stopping eating once I start and usually I feel uncomfortably stuffed after I eat a meal. D. Because I have a problem not being able to stop eating when I want, I sometimes have to induce vomiting to relieve my stuffed feeling. Response Group 11: A Group 12 A. I seem to eat just as much when I'm with others, Family social gatherings as when I'm by myself. B. Sometimes, when I'm with other persons, I don't eat as much as I want to eat because I'm self-conscious about my eating. C. Frequently, I eat only a small amount of food when others are present, because I'm very embarrassed about my eating. D. I feel so ashamed about overeating that I pick times to overeat when I know no one will see me. I feel like a closet eater. Response Group 12: A Group 13 A. I eat three meals a day with only an occasional between meal snack. B. I eat 3 meals a day, but I also normally snack between meals. C. When I am snacking heavily, I get in the habit of skipping regular meals. D. There are regular periods when I seem to be continually eating, with no planned meals. Response Group 13: C Group 14 A. I don't think much about trying to control unwanted eating urges. B. At least some of the time, I feel my thoughts are pre-occupied with trying to control my eating urges. C. I feel that frequently I spend much time thinking about how much I ate or about trying not to eat anymore. D. It seems to me that most of my waking hours are pre-occupied by thoughts about eating or not eating. I feel like I'm constantly struggling not to eat. Response Group 14: C Group 15 A. I don't think about food a great deal. B. I have strong craving for food but they last only for brief periods of time. C. I have days when I can't seem to think about anything else but food. D. Most of my days seem to be pre-occupied with thoughts about food. I feel like I live to eat. Response Group 15: C Group 16 A. I usually know whether or not I'm physically hungry. I take the right portion of food to satisfy me. B. Occasionally, I feel uncertain about knowing whether or not I'm physically hungry. A these times it's hard to know how much food I should take to satisfy me. C. Even though I might know how many calories I should eat, I don't have any idea what is a normal amount of food for me. Response Group 16: B Binge Eating Score: 26 Score less than 17 Minimal Risk Score between 18-26 Moderate Risk Score between 27-46 High Risk Assessment & Plan Assessment & Plan (1) Obesity (BMI 30-39.9): Code(s): E66.9 - Obesity, unspecified (2) Eating disorder, unspecified: Code(s): F50.9 - Eating disorder, unspecified Plan PT will be seen next week to finish assessment but so far she seems to be a great candidate and will need support post-op Telehealth Telehealth [facility] Location of provider rendering services: other Location of patient: address on file Patient Identification confirmed using: Name, : Yes Telehealth method: voice only Patient verbally consented to treatment: Yes Patient verbally consented to billing insurance company: Yes Patient informed of any privacy concerns related to visit: Yes Minutes spent on Phone/Video with Pt.: 55 Coding Level of Care Code New Pt Tele Psy Diag Eval (63338) Patient Type New Diagnoses Obesity (BMI 30-39.9) E66.9 Eating disorder, unspecified F50.9 Time Spent (min) 55 Comment Star time: 10:00 - End time: 10:55am
== END ==
PROVIDERS: Visit Provider Counselor Mental Health
DX: E66.9 Obesity, unspecified (principal); F50.9 Eating disorder, unspecified
CPT/HCPCS: 90837

== ENCOUNTER → 2024-05-08 10:15 | Outpatient (BNVA) | payer MEDICAID, SELFPAY | PROVIDERS: Visit Provider Counselor Mental Health ==

== ENCOUNTER → 2024-05-16 09:20 | Outpatient (AMB) | payer MEDICAID, SELFPAY ==
--- NOTE | 2024-05-16 09:10 | MHC.WMTHER ---
Intake Intake Visit Reasons: VIDEO Intake Part 2 Allergies No Known Allergies Allergy (Verified 04/17/24 10:35) [facility] Medical History Fatty liver HTN (hypertension) Hiatal hernia Sleep apnea Surgical History Hx of tubal ligation Hx of plastic surgery Family History Mother No problems noted. Father No problems noted. Daughter No problems noted. Son No problems noted. Son No problems noted. Son No problems noted. Social History Are you a primary adult day care worker to a significant other at home: No Do you presently have visiting nurse or other home services: No Alcohol intake: current Alcohol intake frequency: holidays/special occasions only Patient Tobacco Use Status: Never used Tobacco Behavioral Health Assessment Weight Management Therapy Therapy Notes Details PT is a 49 years old female, who presents for a second visit to complete assessment as part of surgical weight loss program. PT started the program in August 2022, however her son had an accident in march/2023 1 weeks before her surgery which lead client to stop her plans to help him with his recovery. She returned to the program in July/2023, and is now dedicated again to her weight-loss journey. In July/2023 she was 191Lbs, and lost 24Lbs total since started program. Today she is 200Lbs. PT reports she has made significant changes on her eating behavior since started our program, such as, learning to eat slower and chew foods properly, which is leading her to enjoy food and notice when she is full, reported also better understanding or a craving, food thoughts Vs hunger which has lead to not engage in eating sweets or eating when bored; she is also more active leading to higher energy levels thorough the day and better sleep. On the other hand, PT denied any history of mental health treatment and or past hospitalization/crisis for behavioral health. Also, denies any history or recent safety concerns around SI/SA and/or self-harm/other-harm, also there is no history of substance use reported. There is also no evidence for stress/emotional-eating, and scores from BES suggest low risk for binge eating behavior. PHQ- scores also showed no active symptoms/concerns with depression. Mental status exam is within normal limits, suggesting person's functioning is not impaired. At this time patient is cleared from the behavioral health standpoint. Presenting Concerns Referral Source [facility]- Provider Reason for referral Completion of behavioral health assessment as part of process for weight-loss surgery. Precipitating Event Obesity. Living Situation Current Living Situation Rent At risk of losing current housing? No Satisfied with current living situation? Yes Comments PT lives with her 4 adult children. (29, 28, the 22 y/o twins) Food/Weight/Diet Expectations of change PT wants to lose weight, being able to maintain the loss and become a healthier person. She wants to feel better with her body and be more physically active for a better quality of life. Most recent weight: 200Lbs (Today) Meal plan: 2 shakes, 2 bars 1 meal. Exercise: 5 days at week, trying to burn 400 calories. History/Relationship with food PT reports she struggles with sweets specially when stressed (lollipops, ice-cream), however PT reports that in the last months she has not engaged on this. In the past she was used to skip breakfast, at lunch was something easy and fast, like a burger, chips and soda. Then for dinner, she never had a specific schedule, she would eat dinner when hungry or when was available to cook. Dinner was the biggest meal of the day and meals were S[place]ican style, for example: rice, beans, fried porkchops, plantains. History/Relationship with weight PT reports she was overweight in childhood, but she was never advised to do a diet or lose weight. As an adolescent she was always in a healthy weight, and her highest was 137Lbs. She become a mom at age 20, and after this she gained some weight steadily, then at her 4rd she had twins and passed the 200Lbs. Last time she was under 200Lbs, 3 months ago at 188Lbs (was at this weight for about a year). In the last 10 years her lowest weight was around 170Lbs and max 260Lbs. History/Relationship with dieting [facility]MP in 2022. Multiple diets such as Ketto, intermittent fasting, Weight Watchers, Herbalife and slim fast. OTC pills, and detox teas. Binge Eating Do you frequently eat large amounts of food in short periods of time, not feeling physically hungry? No Do you feel out of control when you eat a large amount of food in a short period of time? No Do you eat large amounts of food rapidly and typically alone? No Night Eating Do you wake up at least once during the night to eat? No If you wake up in the night, do you find that it is necessary to eat something in order to fall back asleep? No Do you have little or no appetite in the morning and feel very hungry in the evening, often overeating between dinner and when you go to bed? Yes Social History Family history and relationship PT never , but has a boyfriend and they have been together for about 5 years. She has 4 adult children, has 2 brothers, parents alive. PT reports good relationships. Parental/Familial tamper operator obligations None. Developmental history and status None reported. Currently [facility]. Social support Boyfriend and children. Community support None. Advent/Spirituality Druze. Cultural/Ethnic information PT was born in [place]. Lives in [place] 30 years ago. Pt is Sinhala-speaking only. Legal Involvement and History Current or historical involvement with the legal system? None reported. Education Highest grade completed 11th grade. Preferred learning style Visual Currently enrolled in educational program? No Interested in further educational program? No Educational Interests/Skills Driving. 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 ) Wants help to find employment? No Meaningful activities Mindful walks. Listen to music, family activities, be with her dog. Financial Situation Describe current financial situation Comfortable Financial assistance? Food [employer] Service Service? No Mental Health and Addiction Treatment Current/Past substance abuse? No Comments Alcohol: 2 times at month, 1-2 glasses of wine. Cigarettes/Tobacco: None Cannabis/Edibles: None. Current/Past addictive behavior concerns? No Psychiatric history PT denies ever been in crisis or inpatient for mental health. There is no history and/or current concern about SI/Sa and self-harm or other harm. Medical and Physical Health Summary Additional Medical History not covered in history None. Sexual History concerns None Physical exam in the last year? No Pain Screening Current pain? No Pain in the last few months? Yes (Joint pain.) Medications Is the patient compliant with medications? Not applicable Does the patient have Sanchez Guardian in place? Not applicable Does the patient use complimentary health approaches? No Trauma/Abuse History History of trauma? No Questionnaires PHQ-9 Over the last 2 weeks, how often have you been bothered by any of the following problems? 1. Little interest or pleasure in doing things: not at all 2. Feeling down, depressed, or hopeless: not at all 3. Trouble falling or staying asleep, or sleeping too much: not at all 4. Feeling tired or having little energy: several days 5. Poor appetite or overeating: not at all 6. Feeling bad about yourself - or that you are a failure or have let yourself or your family down: not at all 7. Trouble concentrating on things, such as reading the newspaper or watching television: not at all 8. Moving or speaking so slowly that other people could have noticed. Or the opposite - being so fidgety or restless that you have been moving around a lot more than usual: not at all 9. Thoughts that you would be better off or of hurting yourself in some way: not at all Total score: 1 Depression Screening Interpretation: Negative Depression Screening Done: Yes 36492 - PHQ-9 Billing: Yes Source: Developed by Drs. Jorge Swanson, Yen Alexis, Elroy Murcia and colleagues, with an educational jevon from [employer]. Binge Eating Scale Group 1 A. I don't feel self-conscious about my wt. or body size when I'm with others. B. I feel concerned about how I look to others, but it normally does not make me fell disappointed with myself C. I do get self-conscious about my appearance and wt. which makes me feel disappointed in myself. D. I feel very self-conscious about my wt. and frequently I feel intense shame and disgust for myself. I try to avoid social contacts because of my self-consciousness. Response Group 1: B Group 2 A. I don't have any difficulty eating slowly in the proper manner. B. Although I seem to gobble down foods, I don't end up feeling stuffed because of eating to much. C. At times, I tend to eat quickly and then, I feel uncomfortably full afterwards. D. I have the habit of bolting down my food, without really chewing it. When this happens I usually feel uncomfortably stuffed because I've eaten to much. Response Group 2: A Group 3 A. I feel capable to control my eating urges when I want to. B. I feel like I have failed to control my eating more than the average person. C. I feel utterly helpless when it comes to feeling in control of my eating urges. D. Because I feel so helpless about controlling my eating I have become very desperate about trying to get control. Response Group 3: B Group 4 A. I don't have the habit of eating when I'm bored. B. I sometimes eat when I'm bored, but often I'm able to get busy and get my mind off food. C. I have a regular habit of eating when I'm bored, but occasionally, I can use some other activity to get my mind off eating. D. I have a strong habit of eating when I'm bored. Nothing seems to help me breath the habit. Response Group 4: B Group 5 A. I'm usually physically hungry when I eat something. B. Occasionally, I eat something on impulse even though I really am not hungry. C. I have the regular habit of eating foods, that I might not really enjoy, to satisfy a hungry feeling even though physically, I don't need the food. D. Although I'm not physically hungry, I get a hungry feeling in my mouth that only seems to be satisfied when I eat a food, like sandwich, that fills my mouth. Sometimes, when I eat the food to satisfy my mouth hunger, I then spit the food out so I won't gain weight. Response Group 5: B Group 6 A. I don't feel any guilt or self-hate after I overeat. B. After I overeat, occasionally I feel guilt or self-hate. C. Almost all the time I experience strong guilt or self-hate after I overeat. Response Group 6: C Group 7 A. I don't lose total control of my eating when dieting even after periods when I overeat. B. Sometimes when I eat a forbidden food on a diet, I feel like I blew it and eat even more. C. Frequently, I have the habit of saying to myself, I've blown it now, why not go all the way, when I overeat on a diet. When that happens I eat more. D. I have a regular habit of starting a strict diets for myself but I break the diets by going on an eating binge. My life seems to be either a feast or famine. Response Group 7: B Group 8 A. I rarely eat so much food that I feel uncomfortably stuffed afterwards. B. Usually about once a month, I each such a quantity of food, I end up feeling very stuffed. C. I have regular periods during the month when I eat large amounts of food, either at mealtime or at snacks. D. I eat so much food that I regularly feel quite uncomfortable after eating and sometimes a bit nauseous. Response Group 8: A Group 9 A. My level of calorie intake does not go up very high or go down very low on a regular basis. B. Sometimes after I overeat, I will try to reduce my caloric intake to almost nothing to compensate for the excess calories I've eaten. C. I have a regular habit of overeating during the night. It seems that my routine is not to be hungry in the morning but overeat in the evening. D. In my adult years, I have had week-long periods where I practically starve myself. This follows periods when I overeat. It seems I live a life of either feast or famine. Response Group 9: A Group 10 A. I usually am able to stop eating when I want to. I know when enough is enough. B. Every so often, I experience a compulsion to eat which I can't seem to control. C. Frequently, I experience strong urges to eat which I seem unable to control, but at other times I can control my eating urges. D. I feel incapable of controlling urges to eat. I have a fear of not being able to stop eating voluntarily. Response Group 10: A Group 11 A. I don't have any problem stopping eating when I feel full. B. I usually can stop eating when I feel full but occasionally overeat leaving me feeling uncomfortably stuffed. C. I have a problem stopping eating once I start and usually I feel uncomfortably stuffed after I eat a meal. D. Because I have a problem not being able to stop eating when I want, I sometimes have to induce vomiting to relieve my stuffed feeling. Response Group 11: A Group 12 A. I seem to eat just as much when I'm with others, Family social gatherings as when I'm by myself. B. Sometimes, when I'm with other persons, I don't eat as much as I want to eat because I'm self-conscious about my eating. C. Frequently, I eat only a small amount of food when others are present, because I'm very embarrassed about my eating. D. I feel so ashamed about overeating that I pick times to overeat when I know no one will see me. I feel like a closet eater. Response Group 12: A Group 13 A. I eat three meals a day with only an occasional between meal snack. B. I eat 3 meals a day, but I also normally snack between meals. C. When I am snacking heavily, I get in the habit of skipping regular meals. D. There are regular periods when I seem to be continually eating, with no planned meals. Response Group 13: A (Following meal plan.) Group 14 A. I don't think much about trying to control unwanted eating urges. B. At least some of the time, I feel my thoughts are pre-occupied with trying to control my eating urges. C. I feel that frequently I spend much time thinking about how much I ate or about trying not to eat anymore. D. It seems to me that most of my waking hours are pre-occupied by thoughts about eating or not eating. I feel like I'm constantly struggling not to eat. Response Group 14: B Group 15 A. I don't think about food a great deal. B. I have strong craving for food but they last only for brief periods of time. C. I have days when I can't seem to think about anything else but food. D. Most of my days seem to be pre-occupied with thoughts about food. I feel like I live to eat. Response Group 15: B Group 16 A. I usually know whether or not I'm physically hungry. I take the right portion of food to satisfy me. B. Occasionally, I feel uncertain about knowing whether or not I'm physically hungry. A these times it's hard to know how much food I should take to satisfy me. C. Even though I might know how many calories I should eat, I don't have any idea what is a normal amount of food for me. Response Group 16: A Binge Eating Score: 9 Score less than 17 Minimal Risk Score between 18-26 Moderate Risk Score between 27-46 High Risk Assessment & Plan Assessment & Plan (1) Obesity (BMI 30-39.9): Code(s): E66.9 - Obesity, unspecified (2) Adjustment disorder, unspecified: Code(s): F43.20 - Adjustment disorder, unspecified Plan This patient has been cleared from standpoint and will be seen at 4-6 weeks post-op for support. This provider has advised client to utilize available resources such as peer support group, Facebook group and group therapy, also the patient has been informed of support available at anytime while she is part of this program. Next rosette: 4-6 weeks post-op. Telehealth Telehealth Telehealth Platform: [facility] Location of provider rendering services: other Location of patient: address on file Patient Identification confirmed using: Name, : Yes Telehealth method: voice only Patient verbally consented to treatment: Yes Patient verbally consented to billing insurance company: Yes Patient informed of any privacy concerns related to visit: Yes Minutes spent on Phone/Video with Pt.: 50 Coding Level of Care Code Established Pt Tele Psytx 45 mins (01575) Patient Type Established Diagnoses Obesity (BMI 30-39.9) E66.9 Adjustment disorder, unspecified F43.20 Time Spent (min) 50 Comment Star time: 9:10am, End time:10:00am
== END ==
PROVIDERS: Visit Provider Counselor Mental Health
DX: E66.9 Obesity, unspecified (principal); F43.20 Adjustment disorder, unspecified
CPT/HCPCS: 90834

== ENCOUNTER → 2024-05-16 09:20 | Outpatient (BNVA) | payer MEDICAID, SELFPAY | PROVIDERS: Visit Provider Counselor Mental Health ==

== ENCOUNTER → 2024-06-22 15:43 | Outpatient (BNV) | payer MEDICAID, SELFPAY | PROVIDERS: Admitting Provider Surgery; Visit Provider Internal Medicine Cardiovascular Disease | DX: I44.0 Atrioventricular block, first degree (principal) | CPT/HCPCS: 93010 ==

== ENCOUNTER → 2024-06-22 16:36 | Outpatient (BNVA) | payer MEDICAID, SELFPAY | PROVIDERS: Visit Provider Physician Assistant Surgical ==

== ENCOUNTER 2024-06-22 18:45 | Emergency (ER) | payer MEDICAID, SELFPAY ==
[2024-06-22 19:05] VITALS: BP 141/66; PULSE 85; RESP 20; TEMP 37; O2SAT 97; BMI 32.6
[2024-06-22 19:20] LABS: MANUAL DIFF FLAG NO
[2024-06-22 19:21] LABS: Basophils Percent Auto 0.3 % (0-2); Eosinophils Absolute Auto 0.3 X10*3/uL (0.0-0.4); Hematocrit 39.6 % (37.0-47.0); Hemoglobin 13.7 g/dl (12.0-16.0); Imm Gran Abs Auto 0.03 X10*3/uL (0.00-0.03); Imm Gran Pct Auto 0.3 % (0.0-0.4); Lymphocytes Absolute Auto 2.4 X10*3/uL (1.2-4.9); Lymphocytes Percent Auto 26.2 % (20-40); Mean Corpuscular HGB Conc 34.6 g/dl (31.0-35.0); Mean Corpuscular Hemoglobin 29.8 pg (27.0-33.0); Mean Corpuscular Volume 86.1 fL (80.0-98.0); Mean Platelet Volume 9.8 fL (9.4-12.3); Monocytes Absolute Auto 0.5 X10*3/uL (0.1-1.2); Monocytes Percent Auto 5.9 % (2-11); Neutrophils Absolute Auto 5.8 x10*3/uL (2.0-8.3); Neutrophils Percent Auto 64.3 % (45-73); Platelet Count 322 X10*3/uL (160-400); Red Cell Distribution Width 13.3 % (11.0-16.0)
[2024-06-22 19:39] LABS: Anion Gap 14 (12-20); Blood Urea Nitrogen 16 mg/dL (9-16); Calcium 9.9 mg/dL (8.4-10.2); Carbon Dioxide 29 mmol/L (22-29); Chloride 101 mmol/L (96-108); Creatinine Clr Calc Pharmacy 98.9; Estimated Glomerular Filt Rate > 60; Glucose Random 101 mg/dL (60-115); Potassium 3.1 mmol/L (3.3-5.1); Sodium 141 mmol/L (135-145)
[2024-06-22 22:41] VITALS: BP 139/60; PULSE 80; RESP 16; TEMP 36.5; O2SAT 93
--- NOTE | 2024-06-22 22:52 | ED.GENADULT ---
HPI - General Adult General Chief complaint: Recheck/Abnormal Lab/Rx Stated complaint: sent by Dr margo henao Time Seen by Provider: 06/22/24 22:48 Source: patient Mode of arrival: ambulatory Limitations: no limitations History of Present Illness ED Provider: DR. Helton HPI narrative: Patient is a 49-year-old female is scheduled for bariatric surgery for early next week patient had preoperative workup for medical clearance found to be hypokalemic with potassium level of 2.9 patient was sent to the emergency department for further evaluation. Patient otherwise has no complaints or symptoms. Related Data Home Medications ?Medication ?Instructions ?Recorded ?Confirmed chlorthalidone 25 mg tablet 25 mg PO DAILY 06/20/24 06/20/24 Allergies Allergy/AdvReac Type Severity Reaction Status Date / Time No Known Allergies Allergy Verified 06/22/24 19:07 Review of Systems Review of Systems: All other systems are reviewed and are negative Constitutional: Reports as per HPI and Reports no additional constitutional complaints Eyes: Reports as per HPI and Reports no additional eye complaints Reports system reviewed and no additional complaints, except as documented Cardiovascular: Reports as per HPI and Reports no additional cardiovascular complaints Respiratory: Reports as per HPI and Reports no additional respiratory complaints Gastrointestinal: Reports as per HPI and Reports no additional gastrointestinal complaints Genitourinary: Reports no additional female genitourinary complaints Musculoskeletal: Reports no additional musculoskeletal complaints Skin/Breast: Reports system reviewed and no additional complaints, except as docu Psychiatric: Reports no additional psychiatric complaints Endocrine: Reports no additional endocrine complaints Hematologic/Lymphatic: Reports no additional hematologic/lymphatic complaints Allergic/Immunologic: Reports no additional allergic/immunologic complaints Reports system reviewed and no additional complaints, except as documented and Reports Abnormal speech present [facility] Past Medical History Medical History Fatty liver HTN (hypertension) Hiatal hernia Sleep apnea Surgical History History of esophagogastroduodenoscopy (EGD) Hx of tubal ligation Hx of plastic surgery Family History Family History Mother No problems noted. Father No problems noted. Daughter No problems noted. Son No problems noted. Son No problems noted. Son No problems noted. Social History Social History Are you a primary out of school hours care worker to a significant other at home: No Do you presently have visiting nurse or other home services: No Alcohol intake: current Alcohol intake frequency: holidays/special occasions only Patient Tobacco Use Status: Never used Tobacco Advance Directives: No Advance Directives Information Provided: No Physical Exam ED Vital Signs: Vital Signs - 24 hr 06/22/24 19:05 06/22/24 22:41 06/23/24 00:29 Temperature 98.6 F 97.7 F 97.9 F Pulse Rate 85 80 75 Respiratory Rate 20 16 15 Blood Pressure 141/66 H 139/60 99/60 Pulse Oximetry 97 93 100 Oxygen Delivery Method Room Air Room Air Room Air BMI result Body Mass Index 32.6 Vital signs have been reviewed and appear to be correct. Blood pressure elevated. Heart rate normal. Respiratory rate normal. Temperature normal. Oxygen saturation normal. Appearance: Alert. Oriented X3. No acute distress. Head: Normal external exam. Normocephalic. Atraumatic. No Méndez signs noted. No raccoon eyes noted Eyes: PERRLA. EOMI. Conjunctiva and sclera normal. Eyelids normal. ENT: TM's Normal. Pharynx normal. Uvula midline. Moist mucous membranes. No trismus noted. No drooling noted. No muffled voice noted. Neck: Normal inspection. Neck supple. FROM. No adenopathy. Thyroid Normal. No meningeal signs. No neck mass noted. CVS: Normal heart rate and rhythm. Heart sound normal. No murmurs noted. Pulses normal throughout. Respiratory: No respiratory distress. Painless inspiration. Breath sounds normal. No wheezes/rales/rhonchi noted. Chest nontender. No accessory muscle usage noted or decreased air movement noted. Abdomen: Soft and nontender. Bowel sounds normal in all 4 quadrants. No distention noted. No organomegaly noted. No visible injury noted. Back: No CVA tenderness. Full range of motion noted. Skin: Skin warm and dry. Normal skin color. Normal skin turgor. No rashes/lesions/lacerations noted. Extremities: No lower extremity edema. Extremities exhibit normal range of motion. Extremities nontender. Neuro: Oriented X 3. Cranial nerve exam: II-XII are grossly intact No motor deficit. No sensory deficit. Reflexes normal. Course Reevaluation(s) Reevaluation #1: 49-year-old female with preoperative workup indicating hypokalemia potassium was replaced orally and IV repeat potassium is within normal patient was instructed to eat high potassium foods every day until surgery to avoid delaying the surgery or problems with hypokalemia. Time: 01:32 Medications Administered Discontinued Medications Generic Name Dose Route Start Last Admin Trade Name Freq PRN Reason Stop Dose Admin Potassium Chloride 10 meq in 100 mls @ 100 mls/hr 06/22/24 22:51 06/23/24 00:25 Potassium Chloride/H20 IV 06/22/24 23:50 Infused ONCE ONE Infusion Potassium Chloride 40 meq 06/22/24 22:51 06/22/24 23:25 Potassium Chloride Packet 20 Meq Packet PO 06/22/24 22:52 40 meq ONCE ONE Administration Medical Decision Making Differential Diagnosis Differential Diagnoses: The differential diagnosis associated with the presentation includes ( Electrolyte derangement, hypokalemia, severe anemia, potassium replacement.) Admission/Observation Consideration of admission/observation: Escalation of care including admission/observation considered Lab Data MDM Lab Attestation statement: I reviewed the patient's lab results. 06/22/24 19:15 06/23/24 01:09 Labs: Lab Results 06/22/24 06/23/24 Range/Units 19:15 01:09 WBC 9.0 (4.8-10.8) X10*3/uL RBC 4.60 (4.20-5.50) X10*6/uL Hgb 13.7 (12.0-16.0) g/dl Hct 39.6 (37.0-47.0) % MCV 86.1 (80.0-98.0) fL MCH 29.8 (27.0-33.0) pg MCHC 34.6 (31.0-35.0) g/dl RDW 13.3 (11.0-16.0) % Plt Count 322 (160-400) X10*3/uL MPV 9.8 (9.4-12.3) fL Immature Gran % (Auto) 0.3 (0.0-0.4) % Neut % (Auto) 64.3 (45-73) % Lymph % (Auto) 26.2 (20-40) % [place] % (Auto) 5.9 (2-11) % Eos % (Auto) 3.0 (0-4) % Baso % (Auto) 0.3 (0-2) % Lymph # (Auto) 2.4 (1.2-4.9) X10*3/uL [place] # (Auto) 0.5 (0.1-1.2) X10*3/uL Eos # (Auto) 0.3 (0.0-0.4) X10*3/uL Baso # (Auto) 0.0 (0.0-0.2) X10*3/uL Abs Immat Gran (auto) 0.03 (0.00-0.03) X10*3/uL Absolute Neuts (auto) 5.8 (2.0-8.3) x10*3/uL Absolute Nucleated RBC 0.000 (0.0-0.012) X10*3/uL Nucleated RBC % (auto) 0.0 (0.0-0.2) /100WBC Sodium 141 (135-145) mmol/L Potassium 3.1 L 3.8 D (3.3-5.1) mmol/L Chloride 101 (96-108) mmol/L Carbon Dioxide 29 (22-29) mmol/L Anion Gap 14 (12-20) BUN 16 (9-16) mg/dL Creatinine 0.82 (0.5-1.4) mg/dL Estim Creat Clear Calc 98.9 Estimated GFR > 60 Random Glucose 101 (60-115) mg/dL Calcium 9.9 (8.4-10.2) mg/dL Discharge Plan Discharge Clinical Impression: Acute hypokalemia, Pre-op evaluation Patient Disposition: Home, Self-Care Instructions: Potassium Content of Foods List (ED) Prescriptions: No Action chlorthalidone 25 mg tablet 25 mg PO DAILY Print Language: Slovak
[2024-06-22] MEDS: Potassium Chloride Packet 20 MEQ PACKET 40 MEQ PO (23:25)
[2024-06-22] MEDS: Potassium Chloride/H20 10 MEQ/100 ML PIGGYBACK 100 MEQ IV (23:25)
[2024-06-23 00:29] VITALS: BP 99/60; PULSE 75; RESP 15; TEMP 36.6; O2SAT 100
[2024-06-23 01:27] LABS: Potassium 3.8 mmol/L (3.3-5.1)
[2024-06-23 01:51] VITALS: BP 99/60; PULSE 75; RESP 15; TEMP 36.6; O2SAT 100
== END 2024-06-23 01:51 | disposition home or self-care (01) ==
PROVIDERS: Emergency Provider Emergency Medicine
DX: E87.6 Hypokalemia (principal); R79.89 Other specified abnormal findings of blood chemistry; Z79.899 Other long term (current) drug therapy
CPT/HCPCS: 36415; 80048; 84132; 85025; 99283; 99284; J3480

== ENCOUNTER 2024-06-23 08:04 | Outpatient (AMB) | payer MEDICAID, SELFPAY ==
--- NOTE | 2024-06-23 09:03 | A.OFFVIS_ITS ---
Intake Visit Reasons: (TV) Pre Op LSG 06/27/24 *LOCATOR SPECIALIST* Hat Copyist Required: Yes Hat Copyist Services: Hat Copyist Present Information Interpreted: clinical only Allergies No Known Allergies Allergy (Verified 06/22/24 19:07) HPI HPI (TV) Pre Op LSG 06/27/24 *LOCATOR SPECIALIST*: Details: Start time: 9.21am, End time: 9.41am ?I spent 15 minutes speaking with the patient on the phone plus an additional 5 minutes reviewing and updating records for a total of 20 minutes HPI Comments Details: The patient has gained 19 lbs since last September and 4 lbs since 06/03/24 which was the last time we communicated. On 06/03/24 I gave her a specific meal plan to follow, I asked her to set up her body composition scale and to send me weight measurements weekly. She did none of this. When I confronted her with all these today and she expressed her dissatisfaction with me and wanted to see Dr. Hanks. Unfortunately Dr. Hanks retired and he is no longer available. She gave no answer why she is not communicating or following directions. At this time I told her that I cannot do the surgery under these circumstances and I recommended that she finds another practice to have her surgery. [facility] Medical History Fatty liver HTN (hypertension) Hiatal hernia Sleep apnea Surgical History History of esophagogastroduodenoscopy (EGD) Hx of tubal ligation Hx of plastic surgery Family History Mother No problems noted. Father No problems noted. Daughter No problems noted. Son No problems noted. Son No problems noted. Son No problems noted. Social History Are you a primary med care manager to a significant other at home: No Do you presently have visiting nurse or other home services: No Alcohol intake: current Alcohol intake frequency: holidays/special occasions only Patient Tobacco Use Status: Never used Tobacco Telehealth Telehealth Telehealth Platform: Telephone Location of provider rendering services: practice address Location of patient: address on file Patient Identification confirmed using: Name, : Yes Telehealth method: voice only Patient verbally consented to treatment: Yes Patient verbally consented to billing insurance company: Yes Patient informed of any privacy concerns related to visit: Yes Minutes spent on Phone/Video with Pt.: 20 Assessment & Plan Assessment & Plan (1) Obesity (BMI 30-39.9): Code(s): E66.9 - Obesity, unspecified Category: Medical Plan: Please see HPI Medications: Discontinued potassium chloride ER Discontinued Reason: Doctor's Order 10 mEq PO DAILY 20 tabs 0RF
--- OUTSIDE RECORDS SUMMARY | 2024-06-23 14:53 | XMS_ITS | Continuity of Care Document ---
Author Organization [facility] ter Address [address] [place] [id number] Care Team Providers Care Harvesting Supervisor Name Role Phone Not on Staff, PCP Primary Care Physician Unavail able [place] [facility] [place] - 10/31/[address] [address]- Encounter Diagnosis Chest discomfort(Final) - 10/31/21 Discharge Disposition: A-D/C Home Attending Physician: Shilpa Sampson MD Admitting Physician: Shilpa Sampson MD Referring Physician: Not on Staff, Referring MD Allergies, Adverse Reactions, Alerts No Known Allergies Medications Toradol Inj 15 mg, Injection, Intramuscular, Once, STAT, 10/30/21 22:07:00 EDT, Stop date 10/30/21 22:07:00 EDT Start Date: 10/30/21 Stop Date: 10/30/21 Status: Completed Results Radiology Reports * Exam Date Time Procedure Performing Provider Status 10/30/21 2:42 PM Chest 2 Views Frontal and Lat Radha Bose; Lore (Verified) Notes: (Chest 2 Views Frontal and Lat) Reason For Exam: Chest Pain;Other: RESULT: Chest 2 Views Frontal and Lat Chest 2 Views Frontal and Lat INDICATION: Chest pain. COMPARISON: None. FINDINGS: LINES AND TUBES: None. LUNGS AND PLEURA: Mild left basilar atelectasis, otherwise clear lungs. Normal pulmonary vascularity. No pleural effusion. No pneumothorax. HEART, MEDIASTINUM AND PRICILA: Heart is normal in size. Normal upper mediastinal and hilar contour. BONES AND SOFT TISSUES: No acute abnormality. IMPRESSION: No evidence of acute abnormality. I have personally reviewed the images and I agree with this report. WSN: [id number] Ordering Physician: Bong Fiore Dictated By: Ga العراقي MD Dictated Date/Time: 10/30/21 2:52 pm Reviewed By: Jaylen Velasquez MD Signed By: Jaylen Velasquez MD Signed Date/Time: 10/30/21 2:57 pm Transcribed By: FRANSISCA Transcribed Date/Time: 10/30/21 2:44 pm Vital Signs Most recent to oldest [Reference Range]: 1 2 3 Oxygen Saturation [94-100 %] 100 % (10/31/21 4:09 AM) 100 % (10/31/21 12:37 AM) 100 % (10/30/21 10:38 PM) Pulse Rate [55-90 bpm] 61 bpm (10/31/21 4:09 AM) 58 bpm (10/31/21 12:37 AM) 66 bpm (10/30/21 10:38 PM) Blood Pressure [90-138/55-84 mm Hg] 102/59mm Hg (10/31/21 4:09 AM) 117/61mm Hg (10/31/21 12:37 AM) 157/99mm Hg *H* (10/30/21 10:38 PM) Respiratory Rate [16-30 br/min] 16 br/min (10/31/21 4:09 AM) 13 br/min *L* (10/31/21 12:37 AM) 16 br/min (10/30/21 10:49 PM) Temperature [96.8-100.4 DegF] 97.7 DegF (10/31/21 4:09 AM) 97.4 DegF (10/31/21 12:37 AM) 97.8 DegF (10/30/21 10:38 PM) Mode of Delivery (Oxygen) Room air (10/31/21 4:09 AM) Room air (10/31/21 12:37 AM) ROOM AIR (10/30/21 10:38 PM) Blood pressure sites Arm, left (10/31/21 4:09 AM) Arm, left (10/31/21 12:37 AM) Arm, right (10/30/21 10:38 PM) Temperature Route Oral (10/31/21 4:09 AM) Oral (10/31/21 12:37 AM) Oral (10/30/21 10:38 PM)
== END 2024-06-23 09:42 | disposition home or self-care (01) ==
LOC: HO.HBS 08:04
PROVIDERS: Visit Provider Surgery
DX: E66.9 Obesity, unspecified (principal)
CPT/HCPCS: 99213

== ENCOUNTER 2024-06-27 | Outpatient (REF) | payer MEDICAID, SELFPAY ==
[2024-06-20 12:06] VITALS: BMI 32.1
--- NOTE | 2024-06-22 15:43 | ECG_ITS ---
Test Reason : LOW K Blood Pressure : / mmHG Vent. Rate : 075 BPM Atrial Rate : 075 BPM P-R Int : 224 ms QRS Dur : 076 ms QT Int : 390 ms P-R-T Axes : 044 034 025 degrees QTc Int : 435 ms Sinus rhythm with 1st degree A-V block Otherwise normal ECG When compared with ECG of 28-AUG-2022 13:09, No significant change was found Referred By: Scot Aguilar Electronically Signed By:JASON GRULLON MD
[2024-06-22 16:31] LABS: MANUAL DIFF FLAG NO
[2024-06-22 16:34] LABS: Basophils Percent Auto 0.3 % (0-2); Eosinophils Absolute Auto 0.2 X10*3/uL (0.0-0.4); Hematocrit 40.4 % (37.0-47.0); Hemoglobin 13.9 g/dl (12.0-16.0); Imm Gran Abs Auto 0.02 X10*3/uL (0.00-0.03); Imm Gran Pct Auto 0.3 % (0.0-0.4); Lymphocytes Absolute Auto 1.9 X10*3/uL (1.2-4.9); Lymphocytes Percent Auto 26.1 % (20-40); Mean Corpuscular HGB Conc 34.4 g/dl (31.0-35.0); Mean Corpuscular Volume 87.1 fL (80.0-98.0); Monocytes Absolute Auto 0.5 X10*3/uL (0.1-1.2); Monocytes Percent Auto 6.2 % (2-11); Neutrophils Absolute Auto 4.8 x10*3/uL (2.0-8.3); Neutrophils Percent Auto 64.1 % (45-73); Platelet Count 307 X10*3/uL (160-400); Red Blood Count 4.64 X10*6/uL (4.20-5.50); Red Cell Distribution Width 13.2 % (11.0-16.0); White Blood Count 7.4 X10*3/uL (4.8-10.8)
[2024-06-22 16:39] LABS: INTERNATIONAL NORM RATIO 0.9 (0.9-1.1)
[2024-06-22 16:42] LABS: Partial Thromboplastin Time 31.7 SEC (26.0-36.8)
[2024-06-22 16:46] LABS: Estimated Average Glucose 94 mg/dL; Hemoglobin A1C 110.6772 umol/L; Hemoglobin A1c % 4.9 % (<6.0); Total Hemoglobin (HGBA1C) 3660.0814 umol/L
[2024-06-22 17:11] LABS: Ferritin 126 ng/mL (10-250); Insulin 5 uU/mL (2-29); TSH reflex Free T4 0.52 uIU/mL (0.32-4.0); Vitamin D 25-OH Total 41.7 ng/mL (>30)
[2024-06-22 17:17] LABS: Vitamin B12 777 pg/mL (200-900)
[2024-06-22 17:19] LABS: Alanine Aminotransferase 15 U/L (0-31); Albumin Level 4.3 g/dL (3.5-5.0); Alkaline Phosphatase 111 U/L (39-117); Anion Gap 14 (12-20); Aspartate Amino Transferase 25 U/L (5-31); Bilirubin Total 0.7 mg/dL (0.0-1.0); Blood Urea Nitrogen 13 mg/dL (9-16); C Reactive Protein 1.35 mg/dL (< or = 0.50); Calcium 10.2 mg/dL (8.4-10.2); Carbon Dioxide 29 mmol/L (22-29); Chloride 99 mmol/L (96-108); Cholesterol 191 mg/dL (<200); Creatinine Clr Calc Pharmacy 94.7; Estimated Glomerular Filt Rate > 60; Glucose Random 88 mg/dL (60-115); HDL Cholesterol 66 mg/dL (>40); Iron 79 mcg/dL (30-160); LDL Cholesterol Calculated 107 mg/dL (<100); Percent Iron Saturation 28 % (15-50); Sodium 139 mmol/L (135-145); Total Iron Binding Capacity 280 mcg/dL (228-428); Total Protein 7.5 g/dL (6.5-8.0); Triglycerides 92 mg/dL (<150); Unsaturated Iron Binding 201 ug/dL
[2024-06-22 17:25] LABS: Potassium 2.9 mmol/L (3.3-5.1)
[2024-06-27 02:53] LABS: Zinc 76 mcg/dL (60-130)
[2024-06-28 06:13] LABS: Vitamin B1 11 nmol/L (8-30)
[2024-06-29 06:38] LABS: Vitamin A 47 mcg/dL (38-98)
== END 2024-06-27 00:01 | disposition home or self-care (01) ==
LOC: HO.PAT
PROVIDERS: Physician Assistant Surgical; Visit Provider Surgery
DX: Z01.818 Encounter for other preprocedural examination (principal); E66.9 Obesity, unspecified
CPT/HCPCS: 36415; 80053; 80061; 82306; 82607; 82728; 83036; 83525; 83540; 84425; 84443; 84590; 84630; 85025; 85610; 85730; 86140; 86850; 86900; 86901; 93005